=== PATIENT | female | born 1995 | race Caucasian/White ===

== ENCOUNTER 2017-04-18 04:34 | Inpatient (IN) | payer OTHER ==
[~2017-04-18] VITALS: Ht 167.6 cm; Wt 91.2 kg
[2017-04-18] MEDS ORDERED: Lactated Ringer's 1,000 ML IV PRN (05:06)
[2017-04-18] MEDS ORDERED: CALC500T9 PO (05:09)
[2017-04-18] MEDS ORDERED: Hemorrhage Kit, Post Partum XX ONE ×2 (05:10→15:55)
[2017-04-18] MEDS ORDERED: Ondansetron 2 mg/mL 2 mL Inj IVPUSH PRN ×2 (05:10→11:00)
[2017-04-18] MEDS ORDERED: Methylergonovine 0.2 mg/mL Inj IM PRN ×2 (05:10→15:55)
[2017-04-18] MEDS ORDERED: fentaNYL-PF 50 mCg/mL 2 mL Inj IVPUSH PRN (05:10)
[2017-04-18] MEDS ORDERED: Oxytocin 10 Unit/mL Inj IM PRN ×2 (05:10→15:55)
[2017-04-18] MEDS ORDERED: Oxytocin 30 Units/500 mL LR 30 UNITS in IV Premix 1 EACH IV PRN ×2 (05:10→15:55)
[2017-04-18] MEDS ORDERED: Carboprost 250 mCg/mL Inj IM PRN ×2 (05:10→15:55)
[2017-04-18] MEDS ORDERED: Sodium Chloride LOK Flush 10 mL Syringe IVFLUSH PRN (05:10)
[2017-04-18 05:31] LABS: Mean Corpuscular Hemoglobin 26.7 pg (27.0-35.0)
[2017-04-18] MEDS ORDERED: fentaNYL 2 mCg/mL-Bupivicaine 0.125% 100 mL Premix EPIDURAL ONE (10:17)
[2017-04-18] MEDS ORDERED: Lactated Ringer's 500 ML IV ONE (10:56)
[2017-04-18] MEDS ORDERED: Lactated Ringer's 1,000 ML IV SCH (10:56)
--- NOTE | 2017-04-18 10:56 | PCM.HPANE ---
Patient Data Surgeon Admitting Provider:Adan Cabrera MD Attending Provider:Adan Cabrera MD Primary Care Physician:Adan Cabrera MD Other Provider: Reason for Visit Active Labor ACTIVE LABOR Ht/WT & BMI Body Mass Index Allergies Coded Allergies: No Known Allergies (Unverified , 04/18/17) Past Anesthesia History Anesthesia History: Denies:: Abnormal Airway, Anesthesia Reactions, Difficult Intubation, Fam Anesthesia Reaction, Fam Malignant Hypertherm, Malignant Hyperthermia Medications Reported Medications Calcium Carbonate (Tums)500 Mg Tab.[id number] Mg PO PRN PRN For Indigestion 30 Days 04/18/17 History History of ENT Problems?: No HEENT History: Denies:: Abnormal Airway Cataracts Difficult Intubation Dysphagia Glaucoma Hearing Problem Sinus Problem TMJ Denture Type: None Teeth Condition: Within Normal Limits Hx of Heart Problems?: No Cardiovascular History: Denies:: AICD Abdominal Aortic Aneurism Atrial Fibrillation Cardiac Surgery Chest Pain Congestive Heart Failure Coronary Artery Disease Edema Heart Murmur Hypertension Irregular Heartbeat Pacemaker Peripheral Vascular Rheumatic Fever Thrombophlebitis Valvular Heart Disease Hx of Respiratory Problem?: No Respiratory History: Denies:: Asthma COPD Chest Surgery Cough Dyspnea Emphysema Hemoptysis Oxygen Administration Pneumonia Pulmonary Embolism Tuberculosis Use of C-PAP Machine Use of Inhalers / NEBS Hx Neurologic Problems?: No Neurological History: Denies:: Alzheimer's Disease CVA Dementia Dizziness Headaches Multiple Sclerosis Parkinson's Disease Peripheral Neuropathy Seizures TIA Hx of GI Problems?: No Gastrointestinal History: Denies:: Cirrhosis Diverticulitis Gall Bladder Disease Gastroesphageal Reflux Gastrointestinal Bleeding Heartburn Hepatitis Hiatal Hernia Liver Disease Rectal Bleeding Hx of Problems?: No Genitourinary History: Denies:: HX of Hemodialysis Kidney Stones Urinary Tract Infection HX of Peritoneal Dialysis: No Female Hx: Denies:: Currently Endometriosis Pelvic Inflammatory Problems with Breasts? Skin History: Denies:: History Skin Disorders? Pressure Ulcers Hx Musculoskeletal Problems?: No Musculoskeletal History: Denies:: Back Injury Degenerative Joint Fibromyalgia Joint Replacement Musculoskeletal Trauma Myasthenia Gravis Osteoarthritis Rheumatoid Arthritis Systemic Lupus Hx of Psycho/Social Problems?: No Psycho Social History: Denies:: Anxiety Bipolar Disorder Hx Depression Suicide Attempt Hx Surgeries?: No Hx Any Other Health Problems?: No Other History: Denies:: Cancer Endocrine Disease Hospitalization Thyroid Disease History Blood Transfusions: Positive for:: Accept Blood Products? Denies:: Blood Transfuse Reaction Blood Transfusions Hx Diabetes: No Smoking Status: Unknown if Ever Smoker Stop/Bang Risk Assessment Category Category 1A: Patient has history of documented sleep apnea, and HAS NOT received any narcotic, sedative or anesthesia administration during this stay. Category 1B: Patient has history of documented sleep apnea, and HAS received any narcotic , sedative or anesthesia administration during this stay Category 2: Patient has SUSPECTED Obstructive Sleep Apnea, and HAS received any narcotic , sedative or anesthesia administration during this stay. Category 3: Patient has SUSPECTED Obstructive Sleep Apnea and HAS NOT received narcotic, sedative or anesthesia administration during this stay. Category 4: Outpatient in Procedural Areas with known sleep apnea or who screen positive for High Risk via the STOP/BANG questionnaire. Exam Exam General Appearance: Alert, Oriented X3, Cooperative, No Acute Distress HEENT/AIRWAY: MP 2, Mouth Opening (3 FBMO) Lungs: Clear to Auscultation, Normal Air Movement Heart: Exam Unremarkable, Regular Rate/Rhythm, No Murmurs/Rubs/Gallops Meds/Labs/Diagnostics Labs Test 04/18/17 05:19 White Blood Count 13.1th/mm3 (3.8-10.1) Red Blood Count 4.34mil/mm3 (3.90-5.20) Hemoglobin 11.6g/dL (12.0-15.6) Hematocrit 34.7% (35.0-46.0) Mean Corpuscular Volume 80fL (81-100) Mean Corpuscular Hemoglobin 26.7pg (27.0-35.0) Mean Corpuscular Hemoglobin Concent 33.4% (32.0-37.0) Red Cell Distribution Width 13.6% (12.3-15.4) Platelet Count 300bil/L (150-400) Creatinine 0.41mg/dL (0.57-1.00) Uric Acid 4.3mg/dL (2.6-7.2) Aspartate Amino Transf (AST/SGOT) 10U/L (0-50) Alanine Aminotransferase (ALT/SGPT) 7U/L (0-32) Plan Impression Patient chart reviewed, patient interviewed and anesthestic plan with risks, benefits, and alternatives discussed, and informed consent obtained. NPO per Anesth. Guidelines: Yes ASA Physical Status: ASA2 Mod Systemic Disease Anesthetic Plan: Epidural Bene/Risks/Altern/Consents: Yes HP Complete Prior to Induction: Yes Patrick Chase MD Apr 18, 2017 10:16
[2017-04-18] MEDS ORDERED: EPHEDrine Sulfate 50 mg/mL Inj IVPUSH PRN (11:00)
[2017-04-18] MEDS ORDERED: fentaNYL 2 mCg/mL-Bupiv 0.125% 100 ML EPIDURAL SCH (11:00)
[2017-04-18] MEDS ORDERED: Atropine 1 mg/10 mL (Code) Syringe IVPUSH PRN (11:00)
--- NOTE | 2017-04-18 11:32 | HP ---
[address] [address] HISTORY AND PHYSICAL PATIENT: JEMIMA MATT : 1995 MR#: [id number] ADMIT: 04/18/2017 JOB ID: [id number] CORRECTED REPORT: DATE: 04/18/2017 [facility]: The patient is a 21-year-old AB0 single woman followed prenatally at [facility], see record for details. Due date is April 13, 2017, placing the patient at 40-5/7 weeks gestation on admission. course has been relatively uncomplicated. Patient had spontaneously rupture of membranes at about 0400 hour this morning, clear amniotic fluid, and she began having contractions and came into the [facility]. Cervix is gradually dilating, pain is increasing. She has requested epidural for anesthesia. PHYSICAL EXAMINATION: On admission, height 66 inches. Last weight in the office 198 pounds. Last blood pressure in the office 140/78. Neck: No thyromegaly. Lungs are clear to auscultation and percussion. Heart regular in rate and rhythm. Abdomen last fundal height 39.5 cm, positive heartbeat. Vertex presentation. Pelvic examination: Initial cervix per admitting nurse 1 cm, 50% effaced, high and posterior vertex. (Note in the office cervix was noted on April 16, 2017 to be at 1.5 cm and 70% effaced.) DIAGNOSTIC DATA: Admission lab work results unavailable at the time and place of this dictation. IMPRESSION: 1. A 40 and 5/7 weeks , her first. 2. Spontaneous rupture of membranes of clear fluid, early labor. 3. Negative Group B Streptococcus status, Rh positive, rubella equivocal, received Tdap on March 19, 2017. 4. Declined quad and cystic fibrosis testing, note level two sonogram negative. 5. Increased weight. 6. Prior smoker (stopped in July 2016). 7. History of left ovarian cyst in 2016, left ovary normal per sonogram on October 15, 2016. 8. Social history--engaged to be . 9. No known drug allergies. 10. History of fainting. 11. 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 After extensive workup and consultation [facility] not felt to have arterial thromboembolic event. Occurrence was in 2011 and there has been no recurrence. 12. Family history of hypertension (sister, father), heart disease (sister, father), multiple sclerosis (mother), breast cancer (paternal grandmother), and twins (paternal grandmother had). PLAN: 1. The patient has been admitted to [facility] on April 18, 2017 with rupture of membranes/early labor at 40 and 5/7 weeks gestation. 2. Epidural being provided for pain at her request. 3. Pitocin augmentation currently being provided in light of somewhat spaced uterine contractions at every 4-6 minutes. 4. Will plan rubella vaccination . 5. Recommend no resumption of smoking ever. 6. Later to learn planned control method for . 7. Keeping in mind prior left lower extremity Raynaud's/vasculitis or neuropathic event in 2011, no arterial thromboembolic event. Corrected by CARY 04/19/17 at 9:37am Report type.
[2017-04-18] MEDS ORDERED: LANOlin HPA 7 Gm Ointment TOPICAL PRN (15:55)
[2017-04-18] MEDS ORDERED: Witch Hazel-Glycerin Pads TOPICAL PRN (15:55)
[2017-04-18] MEDS ORDERED: Benzocaine (Dermoplast) 20% 60 Gm Spray TOPICAL PRN (15:55)
[2017-04-18] MEDS ORDERED: Measles-Mumps-Rubella Vaccine 0.5 mL Inj SUBQ ONE (15:55)
--- NOTE | 2017-04-18 18:22 | OP ---
[address] [address] OPERATIVE REPORT PATIENT: JEMIMA MATT : 1995 MR#: [id number] ADMIT: 04/18/2017 JOB ID: [id number] 04/18/2017 [facility] NOTE: The patient was admitted to [facility] this morning with spontaneous rupture of membranes at 40 and 5/7 weeks of gestation, with uterine contractions beginning at about 0300 hours and rupture of membranes occurring at about 0400 hours. Amniotic fluid has been clear throughout. Uterine contractions became gradually stronger, and Pitocin augmentation was also provided to bring them closer together, and epidural provided for pain management. Note that some blood pressures have been mildly elevated, although preeclampsia lab work was fine. Suspect no preeclampsia, although possible -induced hypertension. Magnesium sulfate therapy was not required. The patient had progression in cervical dilatation up to 5 cm, and then 9 cm, and then 10 cm, and the head began dropping. Once completely dilated, the patient learned to push extremely well and the head came down steadily, while heart tracing was good throughout. Epidural definitely helped pain management. Once , head then delivered, followed immediately by delivery of the shoulders, with loose nuchal cord simply advanced over the shoulder as delivery occurred, with body and extremities following. Baby was active and crying and vigorous upon delivery. Baby was handed to mother for bonding and further nurse management. After 1 minute of delay, the umbilical cord was clamped and cut, and then cord blood was obtained for routine studies. Placenta with membranes were then spontaneously expelled intact, and uterus contracted well with massage plus intravenous Pitocin infusion. Blood loss was in the 150 mL range. Betadine solution was used to cleanse the vulvovaginal region. The only laceration was that of a midline second-degree perineal laceration, easily repaired with 3-0 chromic suture in deep and then more superficial running/ultimately subcuticular layer, with complete hemostasis achieved. Anesthesia was by epidural plus local with 1% lidocaine. Instrument, needle, and sponge counts were then all found to be correct and the procedure was complete. Bleeding was minimal and uterus was remaining well contracted. The patient is returned to the supine position and sat up some. It certainly is anticipated that mother and baby will do very well during the timeframe. We will track blood pressure, as borderline/mildly elevated at times, although doubt that antihypertensive medication will be needed. MTDD
--- NOTE | 2017-04-18 20:49 | PCM.ANEP1 ---
Post Anesthesia PACU Phase 1 Assessment Anesthetic Administered: Epidural Level of Alertness: Awake, talking ZAIDI's with Equal Strength: Yes Pain: No Nausea or Vomiting: No CV Function & Hydration Stable: No Airway Device: N/A Oxygen Delivery: Room Air Lungs: Clear to Auscultation, Normal Air Movement Dermatome Level: Full Sensation PACU Phase 2 Assessment Complications: No Follow up Care: N/A Patient Instructions Provided: N/A Patrick Chase MD Apr 18, 2017 20:49
[2017-04-19 07:23] LABS: Mean Corpuscular Hemoglobin 26.4 pg (27.0-35.0); Mean Corpuscular Volume 82.6 fL (81-100)
--- NOTE | 2017-04-19 07:41 | PCM.DIOB ---
Obstetrical Disch Instruction Dates of Hospitalization Date of Hospital Admission Apr 18, 2017 at 04:55 Providers Admitting Physician: Adan Cabrera MD Primary Care Physician: Adan Cabrera MD Attending Physician: Adan Cabrera MD Discharge Diagnosis Problems: (1) Status: Acute ICD Code: Z33.1 Activity Discharge Activity-General: Pelvic Rest for 6 weeks Dressing and Incisional Care Hygiene: May shower, Perineal care, Sitz bath, Dermoplast spray, Witch Sue pads, Ice Follow Up Plan Follow-up appointment: Weeks (Follow up in 6 weeks for checkup.) Call your provider for: Fever or Chills, Shortness of breath, Heavy vaginal bleeding, Red painful breasts Adan Cabrera MD Apr 19, 2017 07:41
[2017-04-19] MEDS ORDERED: DOCU-41 PO (07:45)
[2017-04-19] MEDS ORDERED: IBUP-1827 PO (07:45)
[2017-04-19] MEDS ORDERED: FERR-83 PO (07:45)
[2017-04-19] MEDS: Lactated Ringer's 1,000 ML IV SCH ×2 (07:55→15:55)
[2017-04-19 08:19] VITALS: BP 135/63; PULSE 86; RESP 16
[2017-04-19] MEDS ORDERED: Measles-Mumps-Rubella Vaccine 0.5 mL Inj SUBQ ONE (08:45)
[2017-04-19] MEDS: HYDROcodone-APAP 5-325 mg Tablet PO PRN ×2 (10:40→15:28)
--- NOTE | 2017-04-21 19:02 | DIS ---
[address] [address] DISCHARGE SUMMARY PATIENT: JEMIMA MATT : 1995 MR#: [id number] ADMIT: 04/18/2017 JOB ID: [id number] DIS: 04/19/2017 DISCHARGE DIAGNOSIS: 1. Term , delivered. 2. Mild anemia. PROCEDURES PERFORMED: 1. Vaginal delivery. 2. Perineal repair. 3. Epidural anesthesia. HOSPITAL COURSE: The patient was admitted to [facility] on April 18, 2017, on which day she underwent procedures as described. During the timeframe, the patient did well, with stable vitals, afebrile, with reasonable bleeding and pain management, ambulating and voiding, without leg pain or shortness of breath, and handling baby well. hemoglobin dropped to 9.7. Note that there was no worrisome bleeding and the patient is not dizzy. She requested discharge to home on the first day, i.e., on April 19, 2017, and her request was granted. The patient to call p.r.n. Otherwise to [facility] Pelvic rest for six weeks. Discharge medications include ibuprofen, Colace, and ferrous sulfate, prescriptions written. She will also use vitamin daily while nursing.
== END 2017-04-19 18:00 | disposition home or self-care (01) | DRG 775 ==
LOC: FBCO 04:34 → FBC 04:55
PROVIDERS: ADMIT Obstetrics & Gynecology; ATTEND Obstetrics & Gynecology
PROC: 10E0XZZ Delivery of Products of Conception, External Approach (ICD-10-PCS; principal; 2017-04-18)
PROC: 0KQM0ZZ Repair Perineum Muscle, Open Approach (ICD-10-PCS; 2017-04-18)
PROC: 3E0234Z Introduction of Serum, Toxoid and Vaccine into Muscle, Percutaneous Approach (ICD-10-PCS; 2017-04-19)
DX: O42.02 Full-term premature rupture of membranes, onset of labor within 24 hours of rupture (principal); O69.81X0 Labor and delivery complicated by cord around neck, without compression, not applicable or unspecified; O70.1 Second degree perineal laceration during delivery; Z3A.40 40 weeks gestation of pregnancy; Z23 Encounter for immunization; Z37.0 Single live birth